=== PATIENT | male | born 1985 | race Caucasian/White ===

== ENCOUNTER 2020-08-25 21:07 | Emergency (ER) | payer MEDICAID ==
[~2020-08-25] VITALS: Ht 180.3 cm; Wt 98.0 kg
[2020-08-25] MEDS ORDERED: MORPHINE SULFATE 4 MG/ML CPJ (NOT FOR IM USE) IV ONE (23:15)
[2020-08-26] MEDS ORDERED: LIDOCAINE HCL 1% 20ML VIAL (Pyxis) INJ INFIL ONE (01:15)
[2020-08-26] MEDS ORDERED: ONDANSETRON HCL 4MG/2ML INJ IV ONE (01:30)
[2020-08-26] MEDS ORDERED: AMOX-424 MT (02:26)
[2020-08-26] MEDS ORDERED: IBUP-2030 MT (02:26)
[2020-08-26 03:21] VITALS: BP 146/89
== END 2020-08-26 03:21 | disposition home or self-care (01) ==
LOC: ER 21:07
DX: T23.292A Burn of second degree of multiple sites of left wrist and hand, initial encounter (principal); S62.631B Displaced fracture of distal phalanx of left index finger, initial encounter for open fracture; S62.522B Displaced fracture of distal phalanx of left thumb, initial encounter for open fracture; S00.83XA Contusion of other part of head, initial encounter; R03.0 Elevated blood-pressure reading, without diagnosis of hypertension; F17.210 Nicotine dependence, cigarettes, uncomplicated; Z71.6 Tobacco abuse counseling; F12.90 Cannabis use, unspecified, uncomplicated; W39.XXXA Discharge of firework, initial encounter; Y93.89 Activity, other specified; Y92.488 Other paved roadways as the place of occurrence of the external cause; Y99.8 Other external cause status
CPT/HCPCS: 11730; 12002; 73130; 96374; 96375; 99285; 99406; J2270; J2405; J3490